=== PATIENT | male | born 1950 | race Caucasian/White ===

== ENCOUNTER → 2017-12-26 08:11 | Outpatient (CLI) | payer MEDICARE, OTHER, SELFPAY ==
[2017-12-26 13:39] LABS: Alanine Aminotransferase 33 U/L (12-78); Albumin Level 3.7 gm/dL (3.4-5.0); Alkaline Phosphatase 90 U/L (46-116); Aspartate Amino Transferase 25 U/L (15-37); Bilirubin,Direct 0.1 mg/dL (0.0-0.2); Bilirubin,Total 0.6 mg/dL (0.2-1.0); Chol/HDL Ratio 4.4 (1-3.5); Cholesterol 173 mg/dL (140-200); HDL Cholesterol 39 mg/dL (27-67); LDL Cholesterol 93 mg/dL (0-130); Total Protein,Serum 7.2 gm/dL (6.4-8.2); Triglycerides 204 mg/dL (30-200); VLDL Cholesterol 41 mg/dL (0-40)
== END ==
PROVIDERS: PCP Nurse Practitioner Family; Visit Provider Internal Medicine
DX: Z95.5 Presence of coronary angioplasty implant and graft (principal); R00.1 Bradycardia, unspecified; I44.7 Left bundle-branch block, unspecified; I25.10 Atherosclerotic heart disease of native coronary artery without angina pectoris; I10 Essential (primary) hypertension
CPT/HCPCS: 36415; 80061; 80076

== ENCOUNTER → 2018-01-07 15:13 | Outpatient (CLI) | payer MEDICARE, OTHER, SELFPAY ==
--- NOTE | 2018-01-07 15:21 | XR_ITS ---
XR chest 2V HISTORY: ITS.REASON: COUGH ORDERING PHYSICIAN: Maryanne Garcia PATIENT AGE: 67 years COMPARISON: 04/17/2013 FINDINGS: Prior CABG. No evidence of CHF. Lungs are clear. No acute bony anomalies IMPRESSION: No change with no acute finding. Prior CABG
== END ==
PROVIDERS: PCP Nurse Practitioner Family; Visit Provider Nurse Practitioner Family
DX: R05 Cough (principal)
CPT/HCPCS: 71046

== ENCOUNTER → 2018-01-29 11:04 | Outpatient (CLI) | payer MEDICARE, OTHER, SELFPAY ==
[2018-01-29 13:05] LABS: Anion Gap 12.2 mEq/L (5-15); Blood Urea Nitrogen 30 mg/dL (7-18); Carbon Dioxide 29 mmol/L (21.0-32.0); Chloride 104 mmol/L (98-107); Creatinine,Serum 1.62 mg/dL (0.70-1.30); Estimated Glomerular Filt Rate 43 ml/min (>60); GFR (African American) 52 ML/MIN (>60); Glucose 107 mg/dL (74-106); Potassium 4.2 mmoL/L (3.5-5.1); Sodium 141 mmol/L (136-145)
[2018-01-29 13:11] LABS: Alanine Aminotransferase 55 U/L (12-78); Albumin Level 3.8 gm/dL (3.4-5.0); Alkaline Phosphatase 93 U/L (46-116); Aspartate Amino Transferase 32 U/L (15-37); Bilirubin,Direct 0.1 mg/dL (0.0-0.2); Bilirubin,Total 0.7 mg/dL (0.2-1.0); Chol/HDL Ratio 3.5 (1-3.5); Cholesterol 153 mg/dL (140-200); HDL Cholesterol 44 mg/dL (27-67); LDL Cholesterol 61 mg/dL (0-130); Total Protein,Serum 7.5 gm/dL (6.4-8.2); Triglycerides 238 mg/dL (30-200); VLDL Cholesterol 48 mg/dL (0-40)
== END ==
PROVIDERS: Physician Assistant; PCP Nurse Practitioner Family; Visit Provider Internal Medicine
DX: I25.10 Atherosclerotic heart disease of native coronary artery without angina pectoris (principal); I10 Essential (primary) hypertension; R06.00 Dyspnea, unspecified; E78.4 Other hyperlipidemia; R60.9 Edema, unspecified
CPT/HCPCS: 36415; 80048; 80061; 80076

== ENCOUNTER → 2018-02-04 07:36 | Outpatient (CLI) | payer MEDICARE, OTHER, SELFPAY ==
--- NOTE | 2018-02-04 07:40 | CA_ITS ---
PROCEDURE: 2-D M-mode and color Doppler study INDICATIONS FOR THE TEST: Chest pain COPD Heart Murmur Tobacco Smoking Palpitations Fatigue Syncope Edema Hypertension Diabetes Mellitus Rheumatic Fever SOB GANN Obesity Hyperlipidemia Family History HD Additional History CAD,AVR 1993, STENT PATIENT INFORMATION HEIGHT: 70 WEIGHT:224 GENDER: Male B/P:144/62 2-D/M-MODE INTERPRETATION: 2-D MEASUREMENTS OBSERVED VALUES IN CMS Right Ventricular Dimension (RVDd) 2.4 Interventricular Septum (Thickness)(IVsd) 2.2 Left Ventricular Internal Dimensions(LVIDd) 4.4 Left Ventricular Posterior Wall (Thickness)(LVPWd) 1.6 Aortic Root 3.1 Aortic Cusp Separation 1.7 Left Atrial Dimensions (LAD) 5.0 2D 1. Left atrium is moderately enlarged, left ventricle is normal size, there is moderate concentric left ventricular hypertrophy, visually estimated ejection fraction 55% with no obvious regional wall motion abnormality. 2. The right atrium and right ventricle are mildly enlarged with normal contractility. 3. There is mild prosthetic valve noted in the aortic position, leaflets are not well visualized. 4. The mitral valve has calcification which extends and both anterior and posterior mitral leaflet. 5. The tricuspid valve leaflets are minimally thickened. 6. The pulmonic valve is poorly visualized 7. No significant pericardial effusion noted. DOPPLER INTERROGATION: 1. The maximum aortic out flow velocity recorded study 3 m/s, resulting in a mean gradient across valve of 16 mmHg, valve area is not accurately calculated, there is mild aortic insufficiency. 2. Mitral inflow velocities within normal range, there is no mitral stenosis, there is mild to moderate mitral regurgitation 3. There is mild tricuspid regurgitation noted, calculated right ventricular systolic pressure is 46 mmHg consistent with moderate pulmonary hypertension. Diastolic parameters are inconclusive. CONCLUSION: 1. Moderately enlarged left atrium, normal left ventricular size, moderate concentric left ventricular hypertrophy, visually estimated ejection fraction 55% with no obvious regional wall motion abnormality, diastolic parameters are inconclusive. 2. Bio prosthetic valve in the aortic position, mean gradient across valve is 16 mmHg which does not represent any significant aortic outflow obstruction, there is mild aortic insufficiency. 3. Mild to moderate mitral and mild tricuspid regurgitation, calculated right ventricular systolic pressure of 46 mmHg consistent with moderate pulmonary hypertension. 4
== END ==
PROVIDERS: PCP Nurse Practitioner Family; Visit Provider Internal Medicine
DX: R06.00 Dyspnea, unspecified (principal)
CPT/HCPCS: 93306

== ENCOUNTER → 2019-02-17 09:48 | Outpatient (CLI) | payer MEDICARE, OTHER, SELFPAY ==
--- NOTE | 2019-02-17 09:51 | CA_ITS ---
PROCEDURE: 2-D M-mode and color Doppler study INDICATIONS FOR THE TEST: Chest pain COPD Heart Murmur Tobacco Smoking Palpitations Fatigue Syncope Edema Hypertension+Diabetes Mellitus Rheumatic Fever SOB GANN Obesity Hyperlipidemia+ Family History HD Additional History AVR 1993, STENTS 2016 PATIENT INFORMATION HEIGHT: 70 WEIGHT:228 GENDER: Male B/P:152/57 2-D/M-MODE INTERPRETATION: 2-D MEASUREMENTS OBSERVED VALUES IN CMS Right Ventricular Dimension (RVDd) 3.2 Interventricular Septum (Thickness)(IVsd) 1.3 Left Ventricular Internal Dimensions(LVIDd) 4.3 Left Ventricular Posterior Wall (Thickness)(LVPWd) 1.4 Aortic Root 3.4 Aortic Cusp Separation 1.7 Left Atrial Dimensions (LAD) 4.4 2D 1. Left atrium is mildly enlarged, left ventricle is normal size, mild concentric left ventricular hypertrophy, visually estimated ejection fraction of 55% with no regional wall motion abnormality, septum has sigmoid configuration. 2. The right atrium and right ventricle are mildly enlarged with normal contractility. 3. There is clinical prosthetic valve seen in the aortic position, the valve is well seated. 4. The mitral valve has mitral calcification, leaflets are minimally thickened 5. The tricuspid valve is grossly normal. 6. The pulmonic valve is poorly present. 7. No significant pericardial effusion noted. DOPPLER INTERROGATION: 1. The maximum aortic out flow velocity recorded study 3.3 m/s across the prosthetic valve, resulting in a mean gradient across valve of 22 mmHg, valve area is 1.5 sq cm. There is no significant aortic insufficiency seen. 2. The mitral inflow velocity within normal range, there is no mitral stenosis, there is mild mitral regurgitation, diastolic parameters are inconclusive. 3. There is mild tricuspid regurgitation noted, tricuspid regurgitation jet velocity is inadequate for calculation of the right ventricular systolic pressure, inferior vena cava is not well visualized. CONCLUSION: 1. Mildly enlarged left atrium, normal left ventricular size, mild concentric left ventricular hypertrophy, visually estimated ejection fraction of 55% with no regional wall motion abnormality, septum has sigmoid configuration. Diastolic parameters are inconclusive. 2. The mechanical prosthetic valve in the aortic position, the valve is well seated, the mean gradient across valve is 22 mmHg, valve area is 1.5 sq cm, there is no significant aortic insufficiency. 3. Mild mitral and tricuspid regurgitation 4. No significant pericardial effusion noted.
== END ==
PROVIDERS: PCP Nurse Practitioner Family; Visit Provider Internal Medicine
DX: I25.10 Atherosclerotic heart disease of native coronary artery without angina pectoris (principal)
CPT/HCPCS: 93306

== ENCOUNTER 2024-10-23 12:56 | Outpatient (CLI) | payer MEDICARE, SELFPAY ==
--- NOTE | 2024-10-23 13:01 | XR_ITS ---
FINAL REPORT CLINICAL HISTORY: left shoulder pain COMPARISON: None FINDINGS: LEFT SHOULDER: 3 views of the left shoulder were obtained. There is no acute fracture or dislocation. Mild acromioclavicular and glenohumeral degenerative change is present. There are multiple calcifications superior to the humeral head that may represent calcific tendinitis or calcific bursitis. CT could further evaluate if clinically indicated. IMPRESSION: Mild degenerative change of the acromioclavicular and glenohumeral joints. Multiple calcifications superior to the humeral head, may represent calcific tendinitis or calcific bursitis. CT could further evaluate if clinically indicated. Reviewed, Interpreted and Dictated by Vu Anthony III, MD Transcribed by Domitila Rivero Authenticated and [facility]
== END 2024-10-23 23:59 | disposition home or self-care (01) ==
LOC: RAD 12:57
PROVIDERS: PCP Family Medicine; Visit Provider Family Medicine
DX: M25.512 Pain in left shoulder (principal)
CPT/HCPCS: 73030

== ENCOUNTER 2025-04-22 14:31 | Outpatient (CLI) | payer MEDICARE, SELFPAY ==
--- NOTE | 2025-04-22 14:34 | XR_ITS ---
FINAL REPORT CLINICAL HISTORY: Pain right elbow Pain x 1 1/2 weeks, no known injury COMPARISON: None FINDINGS: RIGHT ELBOW 4 views of the right elbow were obtained. There is no acute fracture or dislocation. There is a large osteophyte measuring 1.3 cm arising from the olecranon. There is soft tissue thickening measuring 1.5 cm overlying the osteophyte. There are moderate hypertrophic changes at the medial joint margin. There are moderate vascular calcifications. 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 Large osteophyte arising from the posterior olecranon with overlying soft tissue edema. Reviewed, Interpreted and Dictated by Michael Carvajal MD Transcribed by Shae Hernandez Authenticated and [facility]
== END 2025-04-22 23:59 | disposition home or self-care (01) ==
LOC: RAD 14:32
PROVIDERS: PCP Family Medicine; Visit Provider Family Medicine
DX: M19.021 Primary osteoarthritis, right elbow (principal); M25.721 Osteophyte, right elbow; R22.31 Localized swelling, mass and lump, right upper limb
CPT/HCPCS: 73080

== ENCOUNTER 2025-04-23 08:34 | Outpatient (CLI) | payer MEDICARE, SELFPAY ==
[2025-04-23 09:33] LABS: Basophils # 0.1 K/mm3 (0-0.2); Basophils % 0.6 % (0.1-2.0); Eosinophils # 0.3 Kmm3 (0.0-0.4); Eosinophils % 3.3 % (0.1-12.0); Hematocrit 38.1 % (42.0-52.0); Hemoglobin 12.8 g/dL (14.1-18.0); Immature Granulocytes # 0.02 10^3uL; Immature Granulocytes % 0.2 %; Lymphocytes # 1.1 K/mm3 (0.7-4.5); Lymphocytes % 12.2 % (10-50); Mean Corpuscular HGB Conc 33.6 g/dL (31.8-35.4); Mean Corpuscular Hemoglobin 30.6 pg (27.0-31.2); Mean Corpuscular Volume 91.1 fl (80-94); Mean Platelet Volume 10.6 fl (7.4-10.4); Monocytes # 0.9 K/mm3 (0.1-1.0); Monocytes % 9.8 % (1.7-9.3); Neutrophils # 6.5 K/mm3 (1.8-7.8); Neutrophils % 73.9 % (37.0-80.0); Nucleated Red Blood Cells # 0 10^3/uL; Nucleated Red Blood Cells % 0 %; Platelet Count 268 K/mm3 (142-424); Red Blood Count 4.18 M/mm3 (4.60-6.20); Red Cell Distribution Width-SD 40.4 fL; White Blood Count 8.8 K/mm3 (4.8-10.8)
[2025-04-23 09:44] LABS: INR 4.08 (0.9-1.1); Prothrombin Time 40.8 seconds (10.1-12.5)
[2025-04-23 10:25] LABS: Albumin Level 3.6 g/dl (3.5-5.0); Chloride 105 mmol/L (98-107); Sodium 138 mmol/L (136-145)
[2025-04-23 10:26] LABS: Potassium 3.9 mmoL/L (3.5-5.1)
[2025-04-23 10:28] LABS: Alanine Aminotransferase 31 U/L (12-78); Albumin/Globulin Ratio 1.2 (1.1-1.8); Anion Gap 7.9 mEq/L (5-15); Aspartate Amino Transferase 34 U/L (17-59); Blood Urea Nitrogen 32 mg/dl (9-20); Carbon Dioxide 29 mmol/L (22.0-30.0); Estimated Glomerular Filt Rate 49 ml/min (>60); GFR (African American) 60 ML/MIN (>60); Globulin 3.1 g/dL (1.3-3.2); Total Protein,Serum 6.7 g/dl (6.3-8.2)
[2025-04-23 10:29] LABS: Alkaline Phosphatase 119 U/L (38-126); Bilirubin,Total 0.6 mg/dl (0.2-1.3); Calcium 9.7 mg/dl (8.4-10.2); Chol/HDL Ratio 4.2 (1-3.5); Cholesterol 135 mg/dl (140-200); Glucose 186 mg/dl (74-100); HDL Cholesterol 32 mg/dl (40-60); Triglycerides 121 mg/dl (30-150); VLDL Cholesterol 24 mg/dL (0-40)
[2025-04-23 10:41] LABS: Direct LDL Cholesterol 46.21 mg/dL (100-129)
[2025-04-23 10:57] LABS: HIV Combo NEGATIVE (Negative)
[2025-04-23 11:05] LABS: Hepatitis C Ab Qual. W/ RFX NEGATIVE (Negative)
[2025-04-23 12:00] LABS: Prostate Specific Ag Screen 4.6 ng/ml (0.0-4.0)
[2025-04-24 05:09] LABS: Hepatitis B Surface Antigen Negative (Negative)
== END 2025-04-23 23:59 | disposition home or self-care (01) ==
LOC: LAB 08:36
PROVIDERS: PCP Family Medicine; Visit Provider Family Medicine
DX: I10 Essential (primary) hypertension (principal); Z95.2 Presence of prosthetic heart valve; Z11.59 Encounter for screening for other viral diseases; Z12.5 Encounter for screening for malignant neoplasm of prostate; E78.49 Other hyperlipidemia
CPT/HCPCS: 36415; 80053; 80061; 83036; 84443; 85025; 85610; 86803; 87340; 87389; G0103

== ENCOUNTER 2025-05-13 14:34 | Outpatient (CLI) | payer MEDICARE, SELFPAY ==
[2025-05-13 15:04] LABS: PHA INR Fingerstick 1.2 (0.9-1.1)
== END 2025-05-13 15:52 ==
LOC: ACC 14:35
PROVIDERS: PCP Family Medicine; Visit Provider Family Medicine
DX: Z95.2 Presence of prosthetic heart valve (principal)
CPT/HCPCS: 85610; 99211; G0463

== ENCOUNTER 2025-05-20 09:27 | Outpatient (CLI) | payer MEDICARE, SELFPAY ==
[2025-05-20 13:59] LABS: PHA INR Fingerstick 1.9 (0.9-1.1)
== END 2025-05-20 15:19 ==
LOC: ACC 09:27
PROVIDERS: PCP Family Medicine; Visit Provider Family Medicine
DX: Z95.2 Presence of prosthetic heart valve (principal)
CPT/HCPCS: 85610; 99211; G0463

== ENCOUNTER 2025-05-28 10:00 | Outpatient (CLI) | payer MEDICARE, SELFPAY ==
[2025-05-28 10:21] LABS: PHA INR Fingerstick 2.2 (0.9-1.1)
== END 2025-05-28 10:22 ==
LOC: ACC 10:00
PROVIDERS: PCP Family Medicine; Visit Provider Family Medicine
DX: Z95.2 Presence of prosthetic heart valve (principal)
CPT/HCPCS: 85610; 99211; G0463

== ENCOUNTER 2025-06-11 09:57 | Outpatient (CLI) | payer MEDICARE, SELFPAY ==
--- OUTSIDE RECORDS SUMMARY | 2025-06-11 10:01 | XMS_ITS | Clinical Summary ---
Author Organization [facility] Address [address] [place] [address] Care Team Providers Care Service Vehicle Operator Name Role Phone Yasmine Ribera DO Primary Care Provider [phone] [phone] Allergies No known active allergies Medications tamsulosin (FLOMAX) 0.4 MG capsule 24 hr capsule 2 Active warfarin (COUMADIN) 5 MG tabletIndications:A ortic valve stenosis, etiology of cardiac valve disease unspecified 11/28/19 2 3 Active atorvastatin (LIPITOR) 40 MG tabletIndications:C oronary artery disease involving [place] heart without angina pectoris, unspecified vessel or lesion type,Aortic valve stenosis, etiology of cardiac valve disease unspecified,Hyperli pidemia, unspecified hyperlipidemia type Take 1 tablet by mouth Daily. 30 tablet 3 3 Active furosemide (LASIX) 40 MG tabletIndications:C oronary artery disease involving [place] heart without angina pectoris, unspecified vessel or lesion type,Aortic valve stenosis, etiology of cardiac valve disease unspecified,Edema leg Take 1 tablet by mouth Daily. 30 tablet 3 3 Active losartan-hydrochlor othiazide (HYZAAR) 50-12.5 MG per tabletIndications:C oronary artery disease involving [place] heart without angina pectoris, unspecified vessel or lesion type,Aortic valve stenosis, etiology of cardiac valve disease unspecified,Hyperte nsion, unspecified type TAKE 1 TABLET EVERY DAY 90 tablet 3 3 Active atenolol (TENORMIN) 50 MG tabletIndications:A trial fibrillation, unspecified type,Coronary artery disease involving [place] heart without angina pectoris, unspecified vessel or lesion type,Aortic valve stenosis, etiology of cardiac valve disease unspecified,Hyperte nsion, unspecified type TAKE 1 TABLET EVERY DAY 90 tablet 3 3 Active Aspirin Low Dose 81 MG EC tablet TAKE 1 TABLET EVERY DAY 90 tablet 3 4 Active Hospital, Clinic, or Other Facility Administered Medication Ordered Dose Route Frequency Start Date End Date Status albuterol (PROVENTIL) nebulizer solution 0.083% 2.5 mg/3mLIndications: Mild intermittent asthma with acute exacerbation 2.5 mg NEBULIZATION Every 6 Hours PRN 11/15/2019 Active Active Problems Problem Noted Date Diagnosed Date Edema leg 12/28/2022 Atrial fibrillation 12/27/2022 Assessment & Plan (12/28/2022 9:22 AM EST): Rate controlled. On Coumadin which is followed by PCP. Also on aspirin. Chads2 score is 3. 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 Updated echo today. Results still pending. Coronary artery disease invo lving [place] heart without angina pectoris 12/27/2022 Assessment & Plan (12/28/2022 9:18 AM EST): 5 stents placed 09-12-2017. On medical therapy. Stable. Hypertension 12/27/2022 Assessment & Plan (12/28/2022 9:19 AM EST): At goal today. Continue plan of care. Hyperlipidemia 12/27/2022 Assessment & Plan (12/28/2022 9:19 AM EST): Followed by PCP, Dr. Ribera. On statin. 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 But does require keeping a close eye on medication doses. Family History Medical History Relation Name Comments Kidney failure Brother Heart attack Father Heart disease Father Cancer Mother Kidney failure Sister Relation Name Status Comments Brother Father (Age 69) Mother (Age 74) Sister Social History Tobacco Use Types Packs/Day Years Used Date Smoking Tobacco: Never Alcohol Use Standard Drinks/Week Comments Not Currently 0 (1 standard drink = 0.6 oz pur e alcohol) Abuse Screen Answer Date Recorded Unsafe at Home or Work/School Not on file Feels Threatened by Someone? Not on file 10/2023 Does Anyone Keep You from Co ntacting Others or Doint Things Outside the Home? Not on file 08/23/2023 Physical Sign of Abuse Present Not on file 1 Housing Stability Answer Date Recorded Current Living Arrangements Not on file 08/12 Potentially Unsafe Housing Conditions Not on giuliano e 08/23/2023 Family and Community Support Answer Jean Marie e Recorded Help with Day-to-Day Activities Not on file 08/23/2023 Lonely or Isolated Not on file 08/23/2023 Employment Answer Date Recorded Do you want help finding or keeping work or a karla b? Not on file 08/23/2023 Disabilities Answer Date Recorded Concentrating, Remembering, or Making Decisions Difficulty Not on file 08/23/2023 Doing Errands Independently Difficulty Not on fi le 08/23/2023 Education Answer Date Recorded Help with school or training? Not on file Preferred Language Not on file 08/23/2023 Sex and Gender Information Value Date Recorded Sex Assigned at Not on file Legal Sex Male 10:26 AM EST Gender Identity Not on file Sexual Orientation Not on file Last Filed Vital Signs Vital Sign Reading Time Taken Comments Blood Pressure 122/70 06/26/2023 8:59 AM EDT Pulse 76 06/26/2023 8:59 AM EDT Temperature 36.4 C (97.6 F) 11/15/2019 11:11 AM EST Respiratory Rate 16 11/15/2019 11:11 AM EST Oxygen Saturation 95% 06/26/2023 8:59 AM EDT Inhaled Oxygen Concentration - - Weight 101 kg (223 lb) 06/26/2023 8:59 AM EDT Height 177.8 cm (5' 10 ) 06/26/2023 8:59 AM EDT Body Mass Index 32 06/26/2023 8:59 AM EDT Plan of Treatment Health Maintenance Due Date Last Done Comments LIPID PANEL 1950 Pneumococcal Vaccine 50+ (1 of 2 - PCV) 1968 TDAP/TD VACCINES (1 - Tdap) 1968 COLOGUARD 1994 COLON CANCER SCREENING 5 YEA R SIGMOIDOSCOPY 1994 COLONOSCOPY [address] CANCER SCREENING 1994 CT COLONOGRAPHY 1994 FECAL OCCULT BLOOD TEST 1994 FIT Testing (1 year) 1994 ZOSTER VACCINE (1 of 2) 1999 AAA SCREEN ONCE 2014 ANNUAL WELLNESS VISIT 11/15/2019 HEPATITIS C SCREENING 11/15/2019 COVID-19 Vaccine ( season) 07/13/202402/2021, 12/16/2020 RSV Vaccine - Adults (1 - 1- dose 75+ series) 2024 INFLUENZA VACCINE 08/12/2025 Insurance MEDICARE ADVANTAGE HMO Care Teams Service Vehicle Operator Relationship Specialty Start Date End Date Yasmine Ribera DO [facility] [place] [address] PCP - General Family Medicine 11/15/19
[2025-06-11 10:22] LABS: PHA INR Fingerstick 2.7 (0.9-1.1)
== END 2025-06-11 10:24 ==
LOC: ACC 09:58
PROVIDERS: PCP Family Medicine; Visit Provider Family Medicine
DX: Z95.2 Presence of prosthetic heart valve (principal)
CPT/HCPCS: 85610; 99211; G0463

== ENCOUNTER 2025-09-09 09:56 | Outpatient (CLI) | payer MEDICARE, SELFPAY ==
--- OUTSIDE RECORDS SUMMARY | 2025-09-09 10:19 | XMS_ITS | Clinical Summary ---
Author Organization [facility] Address [address] [place] [address] Care Team Providers Care Hospital Insurance Clerk Name Role Phone Yasmine Ribera DO Primary Care Provider [phone] [phone] Allergies No known active allergies Medications tamsulosin (FLOMAX) 0.4 MG capsule 24 hr capsule 2 Active warfarin (COUMADIN) 5 MG tabletIndications:A ortic valve stenosis, etiology of cardiac valve disease unspecified 11/28/19 2 3 Active atorvastatin (LIPITOR) 40 MG tabletIndications:C oronary artery disease involving [place] heart without angina pectoris, unspecified vessel or lesion type,Aortic valve stenosis, etiology of cardiac valve disease unspecified,Hyperli pidemia, unspecified hyperlipidemia type Take 1 tablet by mouth Daily. 30 tablet 3 3 Active furosemide (LASIX) 40 MG tabletIndications:C oronary artery disease involving [place] heart without angina pectoris, unspecified vessel or lesion type,Aortic valve stenosis, etiology of cardiac valve disease unspecified,Edema leg Take 1 tablet by mouth Daily. 30 tablet 3 3 Active losartan-hydrochlor othiazide (HYZAAR) 50-12.5 MG per tabletIndications:C oronary artery disease involving [place] heart without angina pectoris, unspecified vessel or lesion type,Aortic valve stenosis, etiology of cardiac valve disease unspecified,Hyperte nsion, unspecified type TAKE 1 TABLET EVERY DAY 90 tablet 3 3 Active atenolol (TENORMIN) 50 MG tabletIndications:A trial fibrillation, unspecified type,Coronary artery disease involving [place] heart without angina pectoris, unspecified vessel or [...] still pending. Coronary artery disease invo lving [place] heart without angina pectoris 12/27/2022 Assessment & [...] 11/15/2019 HEPATITIS C SCREENING 11/15/2019 COVID-19 Vaccine (3 - Moderna risk series) 02/10/2021 01/13/2021, 12/16/2020 RSV Vaccine - Adults (1 - 1- dose 75+ series) 2024 INFLUENZA VACCINE 06/12/2025 Insurance MEDICARE ADVANTAGE HMO Care Teams Hospital Insurance Clerk Relationship Specialty Start Date End Date Yasmine Ribera DO [address] [place] [id number] PCP - General Family Medicine 11/15/19
[2025-09-09 11:01] LABS: PHA INR Fingerstick 3.4 (0.9-1.1)
== END 2025-09-09 11:33 ==
LOC: ACC 09:56
PROVIDERS: PCP Family Medicine; Visit Provider Family Medicine
DX: Z79.01 Long term (current) use of anticoagulants (principal); Z95.2 Presence of prosthetic heart valve
CPT/HCPCS: 85610; 99211; G0463

== ENCOUNTER 2025-09-09 11:04 | Outpatient (CLI) | payer MEDICARE, SELFPAY ==
--- OUTSIDE RECORDS SUMMARY | 2025-09-09 11:08 | XMS_ITS | Clinical Summary ---
Author Organization [facility] Address [address] [place] [address] Care Team Providers Care Pediatric Psychologist Name Role Phone Yasmine Ribera DO Primary Care Provider [phone] [phone] Allergies No known active allergies Medications tamsulosin (FLOMAX) 0.4 MG capsule 24 hr capsule 2 Active warfarin (COUMADIN) 5 MG tabletIndications:A ortic valve stenosis, etiology of cardiac valve disease unspecified 11/28/19 2 3 Active atorvastatin (LIPITOR) 40 MG tabletIndications:C oronary artery disease involving [place] heart without angina pectoris, unspecified vessel or lesion type,Aortic valve stenosis, etiology of cardiac valve disease unspecified,Hyperli pidemia, unspecified hyperlipidemia type Take 1 tablet by mouth Daily. 30 tablet 3 3 Active furosemide (LASIX) 40 MG tabletIndications:C oronary artery disease involving [place] heart without angina pectoris, unspecified vessel or lesion type,Aortic valve stenosis, etiology of cardiac valve disease unspecified,Edema leg Take 1 tablet by mouth Daily. 30 tablet 3 3 Active losartan-hydrochlor othiazide (HYZAAR) 50-12.5 MG per tabletIndications:C oronary artery disease involving [place] heart without angina pectoris, unspecified vessel or lesion type,Aortic valve stenosis, etiology of cardiac valve disease unspecified,Hyperte nsion, unspecified type TAKE 1 TABLET EVERY DAY 90 tablet 3 3 Active atenolol (TENORMIN) 50 MG tabletIndications:A trial fibrillation, unspecified type,Coronary artery disease involving [place] heart without angina pectoris, unspecified vessel or [...] still pending. Coronary artery disease invo lving [place] heart without angina pectoris 12/27/2022 Assessment & [...] 06/12/2025 Insurance MEDICARE ADVANTAGE HMO Care Teams Pediatric Psychologist Relationship Specialty Start Date End Date Yasmine Ribera DO [address] [place] [id number] PCP - General Family Medicine 11/15/19
== END 2025-09-09 23:59 | disposition home or self-care (01) ==
LOC: LAB 11:04
PROVIDERS: PCP Family Medicine; Visit Provider Family Medicine
DX: E11.9 Type 2 diabetes mellitus without complications (principal)
CPT/HCPCS: 82043; 82570

== ENCOUNTER 2025-11-02 13:41 | Outpatient (CLI) | payer MEDICARE, SELFPAY ==
--- OUTSIDE RECORDS SUMMARY | 2025-11-02 14:01 | XMS_ITS | Clinical Summary ---
Author Organization [facility] Address [address] [place] [address] Care Team Providers Care Inside Upholsterer Name Role Phone Yasmine Ribera DO Primary Care Provider [phone] [phone] Allergies No known active allergies Medications tamsulosin (FLOMAX) 0.4 MG capsule 24 hr capsule 2 Active warfarin (COUMADIN) 5 MG tabletIndications:A ortic valve stenosis, etiology of cardiac valve disease unspecified 11/28/19 2 3 Active atorvastatin (LIPITOR) 40 MG tabletIndications:C oronary artery disease involving [place] heart without angina pectoris, unspecified vessel or lesion type,Aortic valve stenosis, etiology of cardiac valve disease unspecified,Hyperli pidemia, unspecified hyperlipidemia type Take 1 tablet by mouth Daily. 30 tablet 3 3 Active furosemide (LASIX) 40 MG tabletIndications:C oronary artery disease involving [place] heart without angina pectoris, unspecified vessel or lesion type,Aortic valve stenosis, etiology of cardiac valve disease unspecified,Edema leg Take 1 tablet by mouth Daily. 30 tablet 3 3 Active losartan-hydrochlor othiazide (HYZAAR) 50-12.5 MG per tabletIndications:C oronary artery disease involving [place] heart without angina pectoris, unspecified vessel or lesion type,Aortic valve stenosis, etiology of cardiac valve disease unspecified,Hyperte nsion, unspecified type TAKE 1 TABLET EVERY DAY 90 tablet 3 3 Active atenolol (TENORMIN) 50 MG tabletIndications:A trial fibrillation, unspecified type,Coronary artery disease involving [place] heart without angina pectoris, unspecified vessel or [...] still pending. Coronary artery disease invo lving [place] heart without angina pectoris 12/27/2022 Assessment & [...] 06/12/2025 Insurance MEDICARE ADVANTAGE HMO Care Teams Inside Upholsterer Relationship Specialty Start Date End Date Yasmine Ribera DO [address] [place] [id number] PCP - General Family Medicine 11/15/19
--- NOTE | 2025-11-02 14:30 | CA_ITS ---
APPROVED REPORT EXAM: Comprehensive 2D, Doppler, and color-flow Echocardiogram Dispatch Machine Runner: Hermelinda Denis RDCS Ht: 5 ft 10 in Wt: 204lbs BSA: 2.10 BP: 139/86 mmHg Indications: MECHANICAL AV,CAD M-Mode Dimensions RVDd 1.75 cm (0.9-2.6) LA Diam 4.60 cm (1.9-4.0) LVDd 5.69 cm (3.5-5.7) LVDs 3.99 cm (3.5-5.7) IVSd 1.18 cm (0.6-1.1) PWd 1.23 cm (0.6-1.1) EF (Teich) 56.30% FS 29.90% EDV (Teich) 159.40 mL ESV (Teich) 69.60 mL LV Diastology E Decel Time 163 (160-240 msec) E/A Ratio 2.9 Aortic Valve WALLACE Index 0.68 cm2/m2 AoV Peak Isiah. 262.0 (50-130 cm/s) AO Peak GR. 27.60 mmHg AO Mean GR. 13.50 (<5 mmHg) AO VTI 43.9 (18-25 cm) WALLACE (VTI) 1.47 (2.5-4.5 cm2) Mitral Valve MV E Max Isiah. 150.0 (40-130 cm/s) MV A Velocity 52.0 (40-130 cm/s) E/A Ratio 2.91 MV PHT 48.0 ms Tricuspid Valve TR P. Velocity 275.00 cm/s RAP Estimate 10.00 mmHg RVSP 40.30 mmHg Left Ventricle The left ventricle is normal size. Left ventricular systolic function is normal. The left ventricular ejection fraction is within the normal range. There is increased left ventricular wall thickness. There is normal LV segmental wall motion. The left ventricular diastolic function is indeterminate. LVEF is 55% Right Ventricle The right ventricle is normal size. The right ventricular systolic function is normal. Atria The left atrium is moderately dilated. Right atrium is moderately dilated. There is no color Doppler evidence of interatrial shunt. Aortic Valve s/p mechanical AVR. The prosthesis is well-seated Peak velocity 2.5 m/s. Mean AV gradient is 12 mmHg. Max AV gradient is 25 mmHg. Mild aortic regurgitation is present, likely due to physiologic washing jets from the mechanical vallve. Mitral Valve The mitral valve is mildly thickened. No evidence of mitral valve stenosis. Mild mitral regurgitation is present. Tricuspid Valve The tricuspid valve leaflets are thin and pliable. Mild tricuspid regurgitation. RVSP is 20-25 mmHg. Pulmonic Valve The pulmonary valve is grossly normal in structure. Trace pulmonic valve regurgitation is present. Great Vessels The aortic root is normal in size. IVC is normal in size and collapses >50% with inspiration. Pericardium Trivial, posterior pericardial effusion. No echo indications of tamponade. Other Information Study Quality: Technically Difficult Conclusion Normal biventricular systolic function. Biatrial dilation. s/p mechanical AVR. Mild AI due to washing jets from mechanical valve. Mild MR, mild TR Trivial, posterior pericardial effusion. No echo indications of tamponade. Electronically signed by : Sharee Torres MD 11/13/2025 11:35:17
[2025-11-02 14:47] LABS: Hematocrit 37.1 % (42.0-52.0); Hemoglobin 12.1 g/dL (14.1-18.0); Immature Granulocytes % 0.1 %; Mean Corpuscular HGB Conc 32.6 g/dL (31.8-35.4); Mean Corpuscular Hemoglobin 30.5 pg (27.0-31.2); Mean Corpuscular Volume 93.5 fl (80-94); Nucleated Red Blood Cells % 0 %; Platelet Count 204 K/mm3 (142-424); Red Blood Count 3.97 M/mm3 (4.60-6.20); Red Cell Distribution Width-SD 44.5 fL; White Blood Count 8.0 K/mm3 (4.8-10.8)
[2025-11-02 15:19] LABS: Albumin Level 4.3 g/dl (3.5-5.0); Chloride 105 mmol/L (98-107); Sodium 140 mmol/L (136-145)
[2025-11-02 15:20] LABS: Potassium 4.3 mmoL/L (3.5-5.1)
[2025-11-02 15:22] LABS: Alanine Aminotransferase 36 U/L (12-78); Alkaline Phosphatase 95 U/L (38-126); Anion Gap 12.3 mEq/L (5-15); Aspartate Amino Transferase 46 U/L (17-59); Bilirubin,Direct 0.0 mg/dl (0.0-0.4); Bilirubin,Indirect 0.7 mg/dL (0.0-0.9); Bilirubin,Total 0.7 mg/dl (0.2-1.3); Bilirubin,Unconjugated 0.7 mg/dL (0.0-1.1); Blood Urea Nitrogen 37 mg/dl (9-20); Carbon Dioxide 27 mmol/L (22.0-30.0); Creatinine,Serum 1.70 mg/dl (0.66-1.25); Estimated Glomerular Filt Rate 39 ml/min (>60); GFR (African American) 48 ML/MIN (>60); Total Protein,Serum 7.2 g/dl (6.3-8.2)
[2025-11-02 15:23] LABS: Calcium 9.3 mg/dl (8.4-10.2); Cholesterol 123 mg/dl (140-200); Glucose 162 mg/dl (74-100); HDL Cholesterol 42 mg/dl (40-60); Magnesium 1.8 mg/dl (1.6-2.3); Triglycerides 234 mg/dl (30-150)
[2025-11-02 15:39] LABS: Free T4 (Free Thyroxine) 0.92 ng/dl (0.78-2.19)
[2025-11-02 15:54] LABS: Thyroid Stimulating Hormone 3.36 uIU/mL (0.465-4.68)
== END 2025-11-02 23:59 | disposition home or self-care (01) ==
LOC: RT 13:42
PROVIDERS: PCP Family Medicine; Visit Provider Internal Medicine
DX: I08.1 Rheumatic disorders of both mitral and tricuspid valves (principal); I11.9 Hypertensive heart disease without heart failure; T82.03XA Leakage of heart valve prosthesis, initial encounter; I25.10 Atherosclerotic heart disease of native coronary artery without angina pectoris; Z95.2 Presence of prosthetic heart valve; I10 Essential (primary) hypertension; E78.49 Other hyperlipidemia
CPT/HCPCS: 36415; 80048; 80061; 80076; 83735; 84439; 84443; 85025; 93306